=== PATIENT | female | born 1935 | race Caucasian/White ===

== ENCOUNTER 2016-05-28 19:13 | Observation (INO) | payer MEDICARE, OTHER ==
[2016-05-28] MEDS ORDERED: ACETAMINOPHEN 325 MG TAB PO ONE (19:57)
--- NOTE | 2016-05-28 20:37 | RAD ---
EXAM DESCRIPTION: Chest,1 View CLINICAL HISTORY: 80 years Female fever COMPARISON: None. FINDINGS: The cardiomediastinal silhouette appears unremarkable. Atherosclerotic calcifications in the thoracic aorta. No consolidating infiltrates or pleural effusions. No pneumothorax. IMPRESSION: No acute abnormality is identified. Electronically signed by: Sheldon Llamas MD 05/28/2016 8:37 PM CDT
[2016-05-28] MEDS ORDERED: SODIUM CHLORIDE 0.9% 1000ML 1,000 ML IVS ONE (20:39)
--- NOTE | 2016-05-28 21:46 | CT ---
PROCEDURE: Head CLINICAL HISTORY: 80 years Female altered mental status COMPARISON: None. TECHNIQUE: Contiguous axial images obtained through the brain without IV contrast. This exam was performed according to our department optimization program which includes automated exposure control, adjustment of the mA and/or kv according to patient size and/or use of iterative reconstruction technique. FINDINGS: The ventricles and sulci are prominent consistent with atrophic changes. Microvascular ischemic changes. No mass lesions. No acute hemorrhage. Atherosclerotic calcifications. Fluid in the left maxillary sinus. Fluid and mild mucosal thickening within the left sphenoid sinus. Mucosal thickening within the inferior left frontal sinus and within some ethmoid air cells. No depressed calvarial fractures. IMPRESSION: No acute intracranial abnormality is identified. Changes suggesting sinusitis. Electronically signed by: Sheldon Llamas MD 05/28/2016 9:45 PM CDT
[2016-05-28] MEDS ORDERED: cefTRIAXone SODIUM 1 GM in SODIUM CHL 0.9% 50ML MIN-BAG+ 50 ML IVPB ONE (22:07)
--- NOTE | 2016-05-28 22:09 | ED.PDOC ---
History of Present Illness - General Chief Complaint: Fever Stated Complaint: fever, lethargy Time Seen by Provider: 05/28/16 20:30 Source: patient, RN notes reviewed, Vital Signs reviewed, family - Son, daughter Exam Limitations: clinical condition - History of Present Illness Initial Comments: Patient is an 80 y/o female senior living patient with moderate dementia. It was noted that she would not talk today. She would nod her head in answer to yes and no questions, however she would not say anything else which is unusual for her. When she arrived, it was noted she had a fever. It is unknown exactly how long Patient has been like this. Timing/Duration: unsure Severity: moderate Improving Factors: nothing Worsening Factors: nothing Associated Symptoms: fever/chills Allergies/Adverse Reactions: Allergies NO KNOWN ALLERGY Allergy (Verified 05/28/16 19:52) Review of Systems - Review of Systems Unable to Obtain Due To: condition - Patient unable to communicate, although she nods her head "NO" when I ask if she has any pain. She will not respond to other questions., dementia Past Medical History (General) - Patient Medical History Hx Dementia: Yes Hx Thyroid Disease: Yes - Vaccination History Hx Influenza Vaccination: Yes Hx Pneumococcal Vaccination: Yes - Activities of Daily Living Residential/Assisted Living (if applicable):: [facility] Family Medical History - Family History Father Family History: Unknown Physical Exam - Physical Exam General Appearance: Alert, Comfortable, No apparent distress, Well Groomed Eye Exam: bilateral normal Ears, Nose, Throat: normal ENT inspection, normal pharynx Neck: supple Respiratory: lungs clear, normal breath sounds, no respiratory distress, no accessory muscle use Cardiovascular/Chest: no edema, no murmur, tachycardia Gastrointestinal/Abdominal: non tender, soft, no organomegaly, no pulsatile mass Neurologic: depressed affect, disoriented x 3, other - Follows instructions, but will not talk. Skin Exam: normal color, warm/dry Progress - Results/Orders Results/Orders: 05/28/16 05/28/16 05/28/16 19:30 19:35 21:15 Temperature 102.7 F H 101.0 F H Pulse Rate [rt] 112 H Respiratory 16 16 16 Rate Blood Pressure 150/88 [Left Arm] O2 Sat by Pulse 92 L Oximetry 05/28/16 20:52 BLOOD CULTURE Stat 05/28/16 22:07 cefTRIAXone SODIUM [Rocephin] 1 gm Sodium Chl 0.9% 50Ml Min-Bag+ [NS 50ml MINI -BAG+] 50 ml IVPB ONCE Laboratory Results WBC 11.5 K/mm3 (4.8-10.8) H 05/28/16 20:09 RBC 4.45 M/mm3 (4.20-5.40) 05/28/16 20:09 Hgb 13.4 gm/dL (12.0-16.0) 05/28/16 20:09 Hct 41.0 % (36.0-47.0) 05/28/16 20:09 MCV 92.2 fl (81.0-99.0) 05/28/16 20:09 MCH 30.0 pg (27.0-31.0) 05/28/16 20:09 MCHC 32.6 g/dL (33.0-37.0) L 05/28/16 20:09 RDW 14.8 % (11.5-14.5) H 05/28/16 20:09 Plt Count 169 K/mm3 (130-400) 05/28/16 20:09 MPV 9.4 fl (7.40-10.4) 05/28/16 20:09 Absolute Neuts (auto) 9.50 K/uL (1.8-6.8) H 05/28/16 20:09 Absolute Lymphs (auto) 1.10 K/uL (1.0-3.4) 05/28/16 20:09 Absolute Monos (auto) 0.80 K/uL (0.2-0.8) 05/28/16 20:09 Absolute Eos (auto) 0.00 K/uL (0.0-0.4) 05/28/16 20:09 Absolute Basos (auto) 0.00 K/uL (0.0-0.1) 05/28/16 20:09 Neutrophils % 82.4 % (42.0-78.0) H 05/28/16 20:09 Lymphocytes % 9.9 % (20.0-50.0) L 05/28/16 20:09 Monocytes % 7.2 % (2.0-9.0) 05/28/16 20:09 Eosinophils % 0.2 % (1.0-5.0) L 05/28/16 20:09 Basophils % 0.3 % (0.0-2.0) 05/28/16 20:09 Sodium 140 mmol/L (135-145) 05/28/16 20:09 Potassium 4.1 mmol/L (3.6-5.0) 05/28/16 20:09 Chloride 107 mmol/L (101-111) 05/28/16 20:09 Carbon Dioxide 27 mmol/L (21-31) 05/28/16 20:09 Anion Gap 10.1 (12-18) L 05/28/16 20:09 BUN 14 mg/dL (7-18) 05/28/16 20:09 Creatinine 0.90 mg/dL (0.6-1.3) 05/28/16 20:09 BUN/Creatinine Ratio 15.6 (10-20) 05/28/16 20:09 Random Glucose 135 mg/dL (70-105) H 05/28/16 20:09 Serum Osmolality 281.9 mOsm/L (275-295) 05/28/16 20:09 Lactic Acid 1.0 mmol/L (0.5-2.2) 05/28/16 21:00 Calcium 8.9 mg/dL (8.4-10.2) 05/28/16 20:09 Total Bilirubin 0.6 mg/dL (0.2-1.0) 05/28/16 20:09 AST 21 IU/L (10-42) 05/28/16 20:09 ALT 20 IU/L (10-60) 05/28/16 20:09 Alkaline Phosphatase 51 IU/L (42-121) 05/28/16 20:09 Serum Total Protein 7.0 gm/dL (6.4-8.2) 05/28/16 20:09 Albumin 4.1 g/dl (3.2-5.5) 05/28/16 20:09 Globulin 2.9 gm/dL (2.3-3.5) 05/28/16 20:09 Albumin/Globulin Ratio 1.4 (1.1-1.9) 05/28/16 20:09 Urine Color Yellow (Yellow) 05/28/16 20:35 Urine Appearance Clear (Clear) 05/28/16 20:35 Urine pH 7.0 (4.5-7.8) 05/28/16 20:35 Ur Specific [place] 1.015 (1.005-1.030) 05/28/16 20:35 Urine Protein Trace mg/dL 05/28/16 20:35 Urine Glucose (UA) Negative mg/dL (Negative) 05/28/16 20:35 Urine Ketones Trace mg/dL (NEGATIVE) 05/28/16 20:35 Urine Blood Trace-intact (Negative) H 05/28/16 20:35 Urine Nitrite Negative 05/28/16 20:35 Urine Bilirubin Negative (NEGATIVE) 05/28/16 20:35 Urine Urobilinogen 1.0 mg/dL (0.2-1.0) 05/28/16 20:35 Ur Leukocyte Esterase Negative (Negative) 05/28/16 20:35 Urine RBC 5-10 /hpf H 05/28/16 20:35 Urine WBC 1-3 /hpf 05/28/16 20:35 Ur Epithelial Cells 3-5 /hpf 05/28/16 20:35 Urine Bacteria Rare 05/28/16 20:35 - EKG/XRAY/CT XRAY: chest - No acute process CT: Head: No acute brain abn. Sinusitis--L maxillary, sphenoid, frontal & ethm CT Ordered: Yes Departure - Departure Clinical Impression: Acute sinusitis Qualifiers: Sinusitis location: pansinusitis Recurrence: not specified Qualified Code(s): J01.40 - Acute pansinusitis, unspecified Altered mental status Qualifiers: Altered mental status type: unspecified Qualified Code(s): R41.82 - Altered mental status, unspecified Fever Qualifiers: Fever type: other Qualified Code(s): R50.81 - Fever presenting with conditions classified elsewhere Time of Disposition: 22:17 Disposition: Admit Patient Referrals: Tez Haney MD [Primary Care Provider] - 1-2 Weeks Decision To Admit - Decistion To Admit Decision to Admit Reason: Medical Nature Decision to Admit Date: 05/28/16 Decision to Admit Time: 22:10
[2016-05-28] MEDS ORDERED: cefTRIAXone SODIUM 1 GM VIAL ONE (22:23)
[2016-05-28] MEDS ORDERED: SODIUM CHL 0.9% 50ML MIN-BAG+ 50 ML IVPB ONE (22:23)
[2016-05-28] MEDS ORDERED: IV SET AND CAP CHANGE INJ INJ SCH (23:45)
[2016-05-28] MEDS ORDERED: SODIUM CHLORIDE 0.9% (FLUSH) 10 ML SYG IV PRN (23:56)
[2016-05-28] MEDS ORDERED: ACETAMINOPHEN 325 MG TAB PO PRN (23:56)
[2016-05-29] MEDS ORDERED: SODIUM CHL 0.9% 50ML MIN-BAG+ 50 ML IVPB ONE (07:18)
[2016-05-29] MEDS ORDERED: cefTRIAXone SODIUM 1 GM VIAL ONE (07:18)
[2016-05-29] MEDS ORDERED: SODIUM CHLORIDE 0.9% (FLUSH) 10 ML SYG IV SCH (09:00)
[2016-05-29] MEDS ORDERED: cefTRIAXone SODIUM 1 GM in SODIUM CHL 0.9% 50ML MIN-BAG+ 50 ML IVPB SCH (10:00)
[2016-05-29 18:00] VITALS: BP 153/69; TEMP 98; O2SAT 94
--- NOTE | 2016-05-29 20:24 | SSS ---
SUPERVISING PHYSICIAN: Jayesh Bustillos M.D. CHIEF COMPLAINT: Acute mental status change with a fever. HISTORY OF PRESENT ILLNESS: Ms. Jacobsen is an 80 year-old female patient that lives at [facility] with a history of moderate dementia. Family notes that the patient was fairly normal the previous day and this afternoon she started being somewhat lethargic, refusing to answer any questions and only nodding her head yes or no to questions, but saying nothing which is unusual for her, according to the family. When she arrived in the Emergency Department, it was noted that she had a fever of 102.7. Laboratory studies showed that she had a mild leukocytosis of 11.5 with a shift on the differential. Chemistries all were within normal limits. Urinalysis was unremarkable, only showed a trace of blood on dipstick with microscopic indicating some hematuria with 5 to 10 RBCs, 1 to 3 WBCs, 3 to 5 epithelials but rare bacteria. She also had a urine drug screen that was negative for substances tested. She then had a CT of the head along with a chest x-ray and per radiology interpretation in regards to the CT of the head, there were no acute intracranial abnormalities identified other than findings suggesting of sinusitis. She had a chest x-ray as well in the Emergency Department and per radiology interpretation there were no acute abnormalities identified. Given the patient's acute mental status change and ongoing fever, and findings of possible sinusitis on CT, other than that no other sources of infection were noted. It was felt that the patient would be best served by at least placing in Observation to further monitor the patient's condition and do some additional investigation after admission. The patient was placed in Observation in stable condition. PAST MEDICAL HISTORY: 1. Hypertension. 2. Seasonal allergies. 3. Hypercholesterolemia. 4. Dementia currently on Donepezil. 5. Depression. PAST SURGICAL HISTORY: No surgeries listed although the patient is not a very reliable source of information. Review of chart lists no past surgical history. HOME MEDICATIONS: 1. Donepezil 5 mg daily. 2. Prozac 40 mg daily. 3. Neurontin 300 mg at bedtime. 4. Mobic 7.5 mg daily. 5. Simvastatin 40 mg daily. 6. Lisinopril 5 mg. 7. Levothyroxine 50 mcg daily. ALLERGIES: NO KNOWN ALLERGIES. FAMILY HISTORY: Unremarkable. SOCIAL HISTORY: The patient is retired. She is . She lives at [facility]. She does have a history of smoking but quit 25 years previously, and drinks only infrequently and alcohol to include wine. She denies any illicit drug use. REVIEW OF SYSTEMS: Unobtainable secondary to the patient initially being very uncooperative and non-communicative other than nodding her head. After admission to the Medical/Surgical floor, the patient was much more alert and was able to answer some questions. CONSTITUTIONAL: Denies any fever, chills other than fever noted on admission. HEENT: She does report that she has had a lot of nasal drainage and sinus pressure but no cough. No vision changes or headaches. CHEST: She denies any shortness of breath or productive cough. CARDIOVASCULAR: Denies any chest pains, syncopal episodes or dizziness. ABDOMEN: Denies any nausea, vomiting or diarrhea. GENITOURINARY: Denies any dysuria, increased frequency or other urinary symptoms. NEUROLOGIC: As noted in the History of Present Illness initially in the E. R. was non-communicative but would answer questions with a nod of her head for yes or no, however this resolved after she was given Tylenol and her fever decreased. On admission, the patient was without any significant findings neurologically. She does have a history of advanced dementia. PHYSICAL EXAMINATION: VITAL SIGNS: T max 102.7 initially on admission, after Tylenol this had decreased and normalized, and at discharge she was 97.9 with no fevers reported after 9:00 after admission. Admission weight was 62.8 kg. Vital signs showed her to have a pulse of 112 initially on admission, at discharge it was 96. Blood pressure was stable initially 150/88, at discharge was 163/79. She remained hemodynamically stable through the admission. She was satting 93 to 96 % on room air. GENERAL: The patient appears to be well hydrated and well nourished. She is very cooperative at time of admission to the Medical/Surgical floor. Appears to be comfortable in no acute distress. HEENT: Tympanic membranes are clear bilaterally. Oropharynx is pink and moist without any lesions. Nares are notably erythematous with some clear drainage. She has some discomfort with percussion of the bilateral maxillary sinuses. NECK: Supple, non-tender with full range of motion. No jugular venous distention. CHEST: Lungs are clear to auscultation bilaterally without any rhonchi, wheezing or rales. CARDIOVASCULAR: Regular rate and rhythm without appreciable murmurs, gallops, or rubs. ABDOMEN: Obese but soft, non-tender. Positive bowel sounds. EXTREMITIES: No clubbing, cyanosis or edema. NEUROLOGIC: She was alert to herself, her family members and location. She had no notable neurological deficits regarding either focalizing or localizing deficits. Cranial nerves II-XII are grossly intact on admission to the Medical/ Surgical floor with facial features being symmetrical. Extraocular movements are within normal limits. There was no nystagmus noted. There was no appreciable localizing or lateralizing neuromotor deficits. On admission to the Medical/Surgical floor at exam time, family noted the patient was back to her baseline mental status. LABORATORY: CBC initially on admission did show a leukocytosis of 11.5 that had normalized to 8.8 prior to discharge with a left shift noted on admission but this normalized prior to discharge and after initiation of antibiotics. Chemistries showed normal electrolytes initially on admission with 4.1 potassium , at discharge potassium was 3.4. Creatinine was 0.95, BUN 14. Liver functions all showed to be within normal limits. Calcium was 8.2. Lactic acid on admission was 1.0. Urinalysis showed a trace of intact blood. On microscopic there were 5 to 10 RBCs, 1 to 3 WBCs and 3 to 5 epithelials with rare bacteria. Urine drug screen was negative of all tested. She had a Group A Strep by PCR that was negative. MICROBIOLOGY: Blood cultures remained negative at 24 hours. Urine culture preliminary shows no growth. She had a flu by PCR for A and B which was both negative. Group A Streptococcus culture pending showing no growth at discharge. RADIOLOGY: Chest x-ray in the Emergency Department per radiology interpretation showed no acute abnormalities identified. She also had a CT of the head given that she was having some mental status changes and per radiology interpretation there were no acute intracranial abnormalities identified. HOSPITAL COURSE: Ms. Jacobsen was admitted through the Emergency Department as noted in her History of Present Illness and initially per report from Dr. Noble, E. R. physician, the patient refused to answer any questions other than shake her head yes or no. She was given Tylenol in the E. R. for a fever of 102 as noted in her physical examination and vital signs which had resolved prior to admission to the Medical/Surgical floor. She was given some IV fluids in the Emergency Room and on admission to the Medical/Surgical floor the patient was very cooperative, alert and according to her family was back to her baseline mental status. She remained afebrile through the entire hospitalization after admission and was very anxious to go back to [place]. It was noted that possibly the patient had not been taking her medications as she should as she administers her own medication, but a count of her medications showed that she had not taken too many, only that she had probably not taken her Lisinopril and had been taking her other medications as normal. No other source of infection were identified. The patient remained stable and at time of discharge was felt well enough to be continued in the outpatient setting with treatment plan for acute sinusitis complicated by a fever. ASSESSMENT: 1. Acute sinusitis complicated by the underlying fever and acute mental status change. 2. Seasonal allergies felt to be contributing to underlying development of sinusitis in a patient with dementia in a community setting probably not fully communicating symptoms thus resulting in a complicated likely bacterial sinusitis. 3. Acute mental status change likely secondary to underlying fever and acute sinusitis as noted in number 1. 4. History of hypertension. 5. Hypothyroidism on supplementation. 6. Moderate dementia showing some decline given her change in mental status possibly contributing to underlying fever with the patient being at baseline mental status at time of discharge. PLAN: The patient was discharged to return back to [facility]. Arrangements were made to have the facility at [place] provide medication administration until Home Health could be arranged to assist with the patient's daily medication regimen. I did discuss with the family members that possibly the patient will need reevaluation for need for higher level of care, possibly transfer to the memory unit if the patient continues to show a decrease in her mental status and worsening of her dementia. It was felt that the patient was running a fever secondary to underlying sinusitis, therefore we treated it with Rocephin initially on admission to continue with antibiotics in the outpatient setting. On the morning of discharge, the patient was stable and was felt well enough to be discharged to continue with outpatient therapy plan. Medications at discharge included: 1. Augmentin 2,000 mg/125 mg twice daily for 7 days as per recommended guidelines for acute complicated sinusitis. 2. Tylenol 650 mg every 6 hours as needed for fevers. 3. Align 4 mg daily, #28. 4. Guaifenesin 600 mg twice daily, #14. 5. Nasacort 2 sprays nasally daily, 1 bottle. The patient was discharged with continuation of previous medications, again recommendations to have [facility] manage those medication regimen until arrangement could be made through Home Health. Diet at discharge was as tolerated, regular diet. Activity is increase as tolerated. Condition stable. #[id number] MTDD
== END 2016-05-29 15:15 ==
LOC: ER 19:13 → MS 23:04
PROVIDERS: ADMIT Nurse Practitioner Family; ATTEND Nurse Practitioner Family
DX: J01.00 Acute maxillary sinusitis, unspecified (principal); J01.30 Acute sphenoidal sinusitis, unspecified; J01.10 Acute frontal sinusitis, unspecified; J01.20 Acute ethmoidal sinusitis, unspecified; R41.82 Altered mental status, unspecified; R50.9 Fever, unspecified; J30.2 Other seasonal allergic rhinitis; I10 Essential (primary) hypertension; E03.9 Hypothyroidism, unspecified; F03.90 Unspecified dementia, unspecified severity, without behavioral disturbance, psychotic disturbance, mood disturbance, and anxiety; D72.829 Elevated white blood cell count, unspecified; E78.00 Pure hypercholesterolemia, unspecified; F32.9 Major depressive disorder, single episode, unspecified; Z79.1 Long term (current) use of non-steroidal anti-inflammatories (NSAID); Z79.899 Other long term (current) drug therapy; Z87.891 Personal history of nicotine dependence
CPT/HCPCS: 36415 ×3; 70450; 71010; 80053 ×2; 80307; 81001; 83605; 85025 ×2; 87040 ×2; 87070; 87086; 87502; 87651; 94760; 96365; 96376; 99284; G0378; J0696 ×2; J7030; J7050 ×2

== ENCOUNTER → 2016-11-02 | Outpatient (CLI) | payer MEDICARE, OTHER | END | disposition home or self-care (01) | LOC: GMAB 10:43 | PROVIDERS: ATTEND Family Medicine | DX: E03.9 Hypothyroidism, unspecified (principal) ==

== ENCOUNTER → 2017-03-25 | Outpatient (CLI) | payer MEDICARE, OTHER | LOC: GMAB 12:30 | PROVIDERS: ATTEND Family Medicine | DX: N39.0 Urinary tract infection, site not specified (principal) ==

== ENCOUNTER → 2017-07-18 | Outpatient (CLI) | payer MEDICARE, OTHER | LOC: GMAB 11:52 | PROVIDERS: ATTEND Family Medicine | DX: E03.9 Hypothyroidism, unspecified (principal) ==

== ENCOUNTER → 2017-10-27 | Outpatient (CLI) | payer MEDICARE, OTHER | LOC: NC 12:11 | PROVIDERS: ATTEND Family Medicine | DX: E55.9 Vitamin D deficiency, unspecified (principal); I10 Essential (primary) hypertension; F03.90 Unspecified dementia, unspecified severity, without behavioral disturbance, psychotic disturbance, mood disturbance, and anxiety; E03.9 Hypothyroidism, unspecified ==

== ENCOUNTER → 2017-12-05 | Outpatient (CLI) | payer MEDICARE, OTHER | LOC: GMAE 18:08 | PROVIDERS: ATTEND Family Medicine | DX: E03.9 Hypothyroidism, unspecified (principal) ==

== ENCOUNTER → 2019-02-26 | Outpatient (CLI) | payer OTHER | LOC: BFHOS 10:56 → GMAE 10:56 → EDSTATUS 15:40 | PROVIDERS: ATTEND Family Medicine | DX: R31.9 Hematuria, unspecified (principal) ==